=== PATIENT | female | born 2000 | race Hispanic/Latino ===

== ENCOUNTER 2020-11-08 21:21 | Emergency (ER) | payer OTHER ==
[~2020-11-08] VITALS: Ht 152.4 cm; Wt 75.4 kg
[2020-11-08 22:49] LABS: BASO % 0.3 % (0.0-1.0); EOS % 0.4 % (0.0-3.0); HEMATOCRIT 40.8 % (36.0-47.0); HEMOGLOBIN 13.7 g/dl (12.0-15.5); LYMPH # 1.2 10^3/uL (1.5-5.0); LYMPH % 13.2 % (24.0-44.0); MEAN CORPUSCULAR HEMOGLOBIN 30.4 pg (27.0-33.0); MEAN CORPUSCULAR HGB CONC 33.6 g/dl (32.0-36.5); MEAN CORPUSCULAR VOLUME 90.5 fl (80.0-96.0); MONO # 0.7 10^3/uL (0.0-0.8); MONO % 7.3 % (2.0-8.0); NEUTROPHILS # 7.3 10^3/uL (1.5-8.5); NEUTROPHILS % 78.6 % (36.0-66.0); PLATELET COUNT, AUTOMATED 281 10^3/uL (150-450); RED BLOOD COUNT 4.51 10^6/uL (4.00-5.40); WHITE BLOOD COUNT 9.3 10^3/uL (4.0-10.0)
[2020-11-08 23:13] LABS: ALBUMIN 4.1 GM/DL (3.2-5.2); ALT/SGPT 31 U/L (12-78); BILIRUBIN,DIRECT 0.2 MG/DL (0.0-0.2); BILIRUBIN,TOTAL 0.7 MG/DL (0.2-1.0); BLOOD UREA NITROGEN 10 MG/DL (7-18); CALCIUM LEVEL 9.4 MG/DL (8.5-10.1); CARBON DIOXIDE LEVEL 25 MEQ/L (21-32); CHLORIDE LEVEL 104 MEQ/L (98-107); CREATININE FOR GFR 0.66 MG/DL (0.55-1.30); GLUCOSE, FASTING 102 MG/DL (70-100); LIPASE 48 U/L (73-393); POTASSIUM SERUM 3.8 MEQ/L (3.5-5.1); SODIUM LEVEL 137 MEQ/L (136-145); TOTAL PROTEIN 7.8 GM/DL (6.4-8.2)
[2020-11-08 23:26] LABS: HCG, SERUM QUALITATIVE NEGATIVE (NEGATIVE)
[2020-11-08] MEDS ORDERED: BACTRIM SUSP 160MG/800MG PER 20ML ORAL SYRINGE PO ONE (23:40)
[2020-11-08] MEDS ORDERED: ACETAMINOPHEN 325 MG/10.15 ML UDC PO ONE ×2 (23:40)
[2020-11-09] VITALS: BP 126/85
[2020-11-09] MEDS ORDERED: ACET160L16 PO
[2020-11-09] MEDS ORDERED: SULF1SUS12 PO
[2020-11-12] MEDS ORDERED: CIPR-249 PO (18:20)
== END 2020-11-09 00:24 | disposition home or self-care (01) ==
LOC: M ED 21:21
DX: N12 Tubulo-interstitial nephritis, not specified as acute or chronic (principal)